=== PATIENT | male | born 1990 | race Caucasian/White ===

== ENCOUNTER 2017-11-26 14:09 | Emergency (ER) | payer MEDICARE, OTHER ==
[~2017-11-26] VITALS: Ht 182.9 cm; Wt 130.0 kg
[~2017-11-26 14:09] MED LIST: AMLO10TA2 PO; CORE25TA PO; VASO10TA8 PO
[2017-11-26 14:11] VITALS: BP 195/107; PULSE 77; RESP 16; TEMP 98.6; O2SAT 97
[2017-11-26] MEDS ORDERED: CYCL10TA PO (15:22)
[2017-11-26] MEDS ORDERED: NORC5TAB PO (15:22)
[2017-11-26] MEDS ORDERED: PRED50 PO (15:22)
--- NOTE | 2017-11-26 15:22 | PD ---
HPI . Sciatica Chief Complaint: Back/ Neck Pain or Injury Time Seen by Provider: 14:53 Travel History International Travel<30 days: No Contact w/Intl Traveler<30days: No Traveled to known affect area: No History of Present Illness HPI Patient presents with a chief complaint of sciatica. Onset was a week ago. He describes sciatica of the right lower extremity. Pain is exacerbated by walking and standing and relieved by warm compresses and hot water. Pain is rated 8/10. He does not have any worrisome associated symptoms such as fever or perineal anesthesia. [facility] Past Medical History Medical History: Denies Significant Hx Social History Alcohol Use: No Tobacco Use: No Substance Use: No (vape) Allergies-Medications (Allergen,Severity, Reaction): Coded Allergies: carbinoxamine (Verified Allergy, Unknown, 11/26/17) has to ask mom about reaction had when child pseudoephedrine (Verified Allergy, Unknown, 11/26/17) has to ask mom about reaction had when child Reported Meds & Prescriptions Reported Meds & Active Scripts Active Amlodipine (Amlodipine Besylate) 10 Mg Tab 10 Mg PO DAILY Vasotec (Enalapril Maleate) 10 Mg Tab 10 Mg PO DAILY Coreg (Carvedilol) 25 Mg Tab 25 Mg PO BID Review of Systems Except as stated in HPI: all other systems reviewed are Neg Physical Exam Narrative GENERAL: Awake and alert and in no acute distress. SKIN: Warm and dry. Normal color and turgor. HEAD: Normocephalic/atraumatic. EYES: Pupils are equal. Extraocular movements are intact. NECK: Normal range of motion. Supple. CARDIOVASCULAR: Regular rate and rhythm. RESPIRATORY: Nonlabored respirations. Normal sats. MUSCULOSKELETAL: Atraumatic. Normal muscle tone. No tenderness to percussion of the lumbar spine. No pain on logrolling of the right lower extremity. Positive pain on straight leg raise of the right lower extremity. Normal distal muscular strength. NEUROLOGICAL: A and O 3. Nonfocal. PSYCHIATRIC: Appropriate mood and affect. Data Data Last Documented VS Vital Signs Date Time Temp Pulse Resp B/P (MAP) Pulse Ox O2 Delivery O2 Flow Rate FiO2 11/26/17 14:11 98.6 77 16 195/107 (136) 97 MDM Medical Decision Making Medical Screen Exam Complete: Yes Emergency Medical Condition: Yes Differential Diagnosis Differential diagnosis of leg pain includes but is not limited to lumbar radiculopathy, arthritis, myalgias, DVT. Narrative Course This patient presents with low back pain radiating to his right leg. He has a history of previous back injury. His signs and symptoms are most compatible with radiculopathy. He will be discharged home on steroids. I will also give him prescriptions for [place] and Flexeril. [facility] has been queried and reviewed. Diagnosis Primary Impression: Sciatica Qualified Codes: M54.31 - Sciatica, right side Referrals: Mike Salcido MD R2 1 week Med/Other Pt SpecificInfo: Prescription(s) given Scripts Cyclobenzaprine (Flexeril) 10 Mg Tab 10 MG PO TID for Muscle Spasm, #30 TAB 0 Refills Prov: Mikayla Scott MD 11/26/17 Hydrocodone-Acetaminophen ([place]) 5 Mg-325 Mg Tab 1 TAB PO Q4H Y for PAIN, #12 TAB 0 Refills Prov: Mikayla Scott MD 11/26/17 Prednisone (Prednisone) 50 Mg Tab 50 MG PO DAILY, #6 TAB 0 Refills Prov: Mikayla Scott MD 11/26/17 Disposition: 01 DISCHARGE HOME Condition: Stable Mikayla Scott MD Nov 26, 2017 15:22
[2017-11-26 15:29] VITALS: BP 176/109; PULSE 81; RESP 18; O2SAT 97
[2017-11-26 15:35] VITALS: BP 172/99
== END 2017-11-26 15:47 | disposition home or self-care (01) ==
LOC: NEPD 14:09
DX: M54.31 Sciatica, right side (principal); Z79.899 Other long term (current) drug therapy; Z88.8 Allergy status to other drugs, medicaments and biological substances
CPT/HCPCS: 99283